=== PATIENT | female | born 1995 | race Caucasian/White ===

== ENCOUNTER 2018-04-27 20:53 | Emergency (ER) | payer MEDICAID ==
[2018-04-27 21:19] LABS: URINE SOURCE CLEAN C
[2018-04-27 21:30] LABS: URINE BILIRUBIN MODERATE (NEGATIVE); URINE BLOOD LARGE (NEGATIVE); URINE GLUCOSE (UA) NEGATIVE (NEGATIVE); URINE KETONE 40 mg/dL (NEGATIVE); URINE LEUKOCYTE ESTERASE NEGATIVE (NEGATIVE); URINE MICROSCOPIC INDICATED? YES; URINE NITRATE NEGATIVE (NEGATIVE); URINE PROTEIN 100 mg/dL (NEGATIVE); URINE UROBILINOGEN 0.2 E.U./dL (0.2 - 1.0)
[2018-04-27] MEDS ORDERED: Sodium Chloride 0.9% 1,000 ML IV ONE (21:34)
[2018-04-27 21:39] LABS: BASOPHILE ABSOLUTE 0.7 Th/cumm (0-0.2); EOSINOPHILE ABSOLUTE 0.1 Th/cmm (0.1-0.4); HEMATOCRIT 42.7 % (41.0-60); HEMOGLOBIN 14.2 gm/dL (12-16); LYMPHOCYTE ABSOLUTE 0.5 Th/cmm (1.5-3.0); MEAN CELL VOLUME 83.9 fl (81-100); MEAN CORPUSCULAR HEMOGLOBIN 27.9 pg (27.0-31.0); MEAN CORPUSCULAR HGB CONC 33.3 pg (28.0-36.0); MEAN PLATELET VOLUME 9.3 fl; MONOCYTE ABSOLUTE 0.3 Th/cmm (0.3-1.0); PLATELET COUNT 313 Th/cmm (150-400); RED BLOOD COUNT 5.09 Mil/cmm (3.80-5.10); RED CELL DISTRIBUTION WIDTH 12.8 % (11.5-20.0)
--- NOTE | 2018-04-27 21:42 | ED Physician Chart ---
ED Chief Complaint/HPI - Patient Information Date Seen:: 04/27/18 Time Seen:: 21:30 Chief Complaint:: fast ht rate History of Present Illness:: 22 yr old female who ate bad food at school and vomited 7 to 8 times today nauseous abd discomfort and sinus tachycardia 144 pt with no cardiac hx no cp no dizziness Allergies:: Allergies Allergy/AdvReac Type Severity Reaction Status Date / Time No Known Allergies Allergy Verified 04/27/18 21:03 Vitals:: Vital Signs - 8 hr 04/27/18 20:55 Temp 98.7 F HR 145 RR 18 BP 131/97 O2 Sat % 96 ED Review of Systems - Review of Systems General/Constitutional: No fever Skin: No skin lesions Head: No headache Eyes: No loss of vision ENT: No earache Neck: No neck pain Cardio Vascular: No chest pain Pulmonary: No SOB GI: No vomiting G/U: No dysuria Musculoskeletal: No bone or joint pain Endocrine: No polyuria Psychiatric: No depression, No anxiety Hematopoietic: No bruising Allergic/Immuno: No urticaria Neurological: No syncope ED Septic Shock - . Is Septic Shock (SBP<90, OR Lactate>4 mmol\L) present?: No - <6hrs of presentation: Vital Signs: Vital Signs - 8 hr 04/27/18 20:55 Temp 98.7 F HR 145 RR 18 BP 131/97 O2 Sat % 96 ED Reassessment (Disposition) - Reassessment Reassessment Condition:: Improved - Diagnosis Diagnosis:: vomiting gastroenteritis dehydration sinus tachycardia - Aftercare/Follow up Instructions Aftercare/Follow-Up Instructions:: Counseled pt regarding lab results/diagnosis & need follow up - Patient Disposition Discharge/Transfer:: Home Condition at Disposition:: Stable
[2018-04-27 21:54] LABS: ALB/GLOB RATIO 1.3 (1.0-1.8); ALBUMIN 4.5 gm/dL (3.7-5.3); ALKALINE PHOSPHATASE 76 U/L (34-104); AMYLASE SERUM 36 U/L (29-103); ANION GAP 16.4 (7.0-16.0); BILIRUBIN,TOTAL 0.6 mg/dL (0.3-1.0); BUN - UREA NITROGEN 10 mg/dL (7-25); CALCIUM SERUM 9.7 mg/dL (8.6-10.3); CARBON DIOXIDE 19.8 mEq/L (21.0-31.0); CHLORIDE 103 mEq/L (98-107); CREATININE - SERUM 0.5 mg/dL (0.6-1.2); GFR AFRICAN-AMERICAN > 60.0 ml/min (>90); GFR NON AFRICAN-AMERICAN > 60.0 ml/min; GLUCOSE 126 mg/dL (70-105); LIPASE 13 U/L (11-82); POTASSIUM SERUM 3.2 mEq/L (3.5-5.1); SGOT 13 U/L (13-39); SGPT/ALT 12 U/L (7-52); SODIUM SERUM 136 mEq/L (136-145); TOTAL PROTEIN,SERUM 7.9 gm/dL (6.0-8.3)
[2018-04-27 21:55] LABS: WHITE BLOOD COUNT 19.6 Th/cmm (4.8-10.8)
[2018-04-27 21:57] LABS: AMPHETAMINE URINE NEGATIVE (NEGATIVE); BARBITURATES URINE NEGATIVE (NEGATIVE); CANNABINOID THC POSITIVE (NEGATIVE); COCAINE METABOLITE QUAL URINE NEGATIVE (NEGATIVE); METHADONE URINE NEGATIVE (NEGATIVE); METHAMPHETAMINES QUAL URINE NEGATIVE (NEGATIVE); OPIATES (MORPHINE) QUAL. URINE NEGATIVE (NEGATIVE); PHENCYCLIDINE (PCP) URINE NEGATIVE (NEGATIVE); TRICYCLICS (TCA) QUAL. URINE NEGATIVE (NEGATIVE)
[2018-04-27 21:58] LABS: BENZODIAZEPINES QUAL URINE NEGATIVE (NEGATIVE)
[2018-04-27] MEDS ORDERED: Potassium Chloride 20 mEq ER Tab PO ONE ×3 (22:01→23:08)
[2018-04-27 22:07] LABS: URINE CLARITY CLEAR (CLEAR); URINE COLOR YELLOW
[2018-04-27 22:10] LABS: URINE BACTERIA 1+ /hpf (NONE SEEN); URINE EPITHELIAL CELLS MODERATE /lpf (FEW)
[2018-04-27] MEDS ORDERED: KCL 20mEq/100mL Premix 20 MEQ/100 ML PIGGYBACK IV SCH (22:15)
[2018-04-27] MEDS ORDERED: KCL 20mEq/100mL Premix 0 MEQ/0 ML PIGGYBACK IV ONE (22:18)
[2018-04-27 22:21] LABS: BAND NEUTROPHILE 14 % (0-10); LYMPHOCYTE 2 % (20-50); MONOCYTE 1 % (2-10); NEUTROPHILS 83 % (40-80)
[2018-04-27] MEDS ORDERED: Piperacillin Sodium/Tazobact 3.375 gm Vial IV ONE (22:30)
--- NOTE | 2018-04-28 08:30 | Diagnostic Imaging Report ---
Exam: CT examination abdomen pelvis. HISTORY: Dull pain Total DLP equals 579 CTDI equals 11.6 Findings: Multiple contiguous thin section of the abdomen pelvis obtained from lower thorax to pubic symphysis without the administration of intravenous or oral contrast material, no prior studies available comparison. The study demonstrates normal appearance of liver parenchyma and spleen. There is evidence for hepatosplenomegaly. The stomach distended with content and air. Small mesenteric lymph nodes are noted. Clinical correlation recommended. The gallbladder is intact. The pancreas is normal. Adrenal glands are normal. The kidneys demonstrate no evidence of obstructive uropathy or nephrolithiasis. No free fluid is noted. There is evidence of for mild ileus. The uterus is intact. There is evidence of diverticular disease without diverticulitis. The appendix is intact. Bony structures demonstrate no evidence for lytic or blastic lesions. IMPRESSION: Mild ileus. Mild diverticulosis no evidence of diverticulitis.
== END 2018-04-27 23:25 | disposition home or self-care (01) ==
LOC: ER 20:53
DX: E86.0 Dehydration (principal); K52.9 Noninfective gastroenteritis and colitis, unspecified; R00.0 Tachycardia, unspecified
CPT/HCPCS: 99285; 96365; 96375; 93005; 74176; 36415; 83605; 80307; 85007; 85025; 81001; 82150; 81025; 83690; 80053; 87040; J2405; J2543; J3480; J7030

== ENCOUNTER 2018-04-28 23:01 | Emergency (ER) | payer MEDICAID ==
[2018-04-28] MEDS ORDERED: Sodium Chloride 0.9% 1,000 ML IV ONE (23:32)
--- NOTE | 2018-04-28 23:45 | ED Physician Chart ---
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 Allergies:: Allergies Allergy/AdvReac Type Severity Reaction Status Date / Time No Known Allergies Allergy Verified 04/27/18 21:03 Vitals:: Vital Signs - 8 hr 04/28/18 23:10 Temp 98.6 F HR 93 RR 17 BP 108/62 O2 Sat % 100 Historian:: Patient Review:: Nurse's Note Reviewed ED Review of Systems - Review of Systems General/Constitutional: No fever, No chills, No weight loss, No weakness, No diaphoresis, No edema, No loss of appetite Skin: No skin lesions, No rash, No bruising Head: No headache, No light-headedness Eyes: No loss of vision, No pain, No diplopia ENT: No earache, No nasal drainage, No sore throat, No tinnitus Neck: No neck pain, No swelling, No thyromegaly, No stiffness, No mass noted Cardio Vascular: No chest pain, No palpitations, No PND, No orthopnea, No edema Pulmonary: No SOB, No cough, No sputum, No wheezing GI: Nausea, Vomiting, Diarrhea, Pain, No melena, No hematochezia, No constipation, No hematemesis G/U: No dysuria, No frequency, No hematuria, No nacturia 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 [employer]: No vaginal discharge, No abnormal vaginal bleed, No contraction Musculoskeletal: No bone or joint pain, No back pain, No muscle pain Endocrine: No polyuria, No polydipsia Psychiatric: No prior psych history, No depression, No anxiety, No suicidal ideation, No homicidal ideation, No auditory hallucination, No visual hallucination Hematopoietic: No bruising, No lymphadenopathy Allergic/Immuno: No urticaria, No angioedema Neurological: No syncope, No focal symptoms, No weakness, No paresthesia, No headache, No seizure, No dizziness, No confusion, No vertigo ED Past Medical History - Past Medical History Obtainable: Yes Past Medical History: No significant medical hx Family History: None Social History: Non Smoker, No Alcohol, No Drug Use, Single Surgical History: None Psychiatricy History: None Medication: Reviewed Family Medical History - Family Member Mother History Unknown: Yes ED Physical Exam - Physical Examination General/Constitutional: Awake, Well-developed, well-nourished, Alert, No distress, GCS 15, Non-toxic appearing, Ambulatory Head: Atraumatic Eyes: Lids, conjuctiva normal, PERRL, EOMI Skin: Nl inspection, No rash, No skin lesions, No ecchymosis, Well hydrated, No lymphadenopathy ENMT: External ears, nose nl, TM canals nl, Nasal exam nl, Lips, teeth, gums nl , Oropharynx nl, Tonsils nl Neck: Nontender, Full ROM w/o pain, No JVD, No nuchal rigidity, No bruit, No mass, No stridor Other Neck comments:: supple; no meningeal signs; no cervical tenderness; no bruits Respiratory: Nl effort/Exclusion, Clear to Auscultation, No Wheeze/Rhonchi/Rales Cardio Vascular: RRR, No murmur, gallop, rubs, NL S1 S2, Carotid/Femoral/Distal pulses equal bilaterally GI: No tenderness/rebounding/guarding, No organomegaly, No hernia, Normal BS's, Nondistended, No mass/bruits, No McBurney tenderness, Rectum exam nl Other GI comments:: no pulsatile masses : No CVA tenderness Extremities: No tenderness or effusion, Full ROM, normal strength in all extremities, No edema, Normal digits & nails Neuro/Psych: Alert/oriented, DTR's symmetric, Normal sensory exam, Normal motor strength, Judgement/insight normal, Mood normal, Normal gait, No focal deficits Other Neuro/Psych comments:: no focal signs Misc: Normal back, No paraspinal tenderness ED Labs/Radiology/EKG Results - Lab Results Comments:: Reviewed - Radiology Results Comments:: X-Rays: deferred by pt ED Septic Shock - . Is Septic Shock (SBP<90, OR Lactate>4 mmol\L) present?: No - <6hrs of presentation: Vital Signs: Vital Signs - 8 hr 04/28/18 23:10 Temp 98.6 F HR 93 RR 17 BP 108/62 O2 Sat % 100 ED Reassessment (Disposition) - Reassessment Reassessment:: pt tolerated po fluids well in ER; pt is asymptomatic upon discharge Reassessment Condition:: Improved - Diagnosis Diagnosis:: Dx: Gastroenteritis; N/V/D; Gastritis; AGE; Anemia; Hypokalemia; UTI; Nephrolithiasis; Hematuria - Aftercare/Follow up Instructions Aftercare/Follow-Up Instructions:: Counseled pt regarding lab results/diagnosis & need follow up, Refer to Discharge Instructions, Counseled pt & family regarding lab results/diagnosis & need follow up Medication Prescribed:: Rx: Macrobid 100mg po bid x 10 days; Strain all Urine with a Urine Strainer; Clear Liquid Diet; Encourage fluids especially citric acid juices - Patient Disposition Discharge/Transfer:: Home Condition at Disposition:: Stable, Improved (RTER prn if existing s/s reoccur and/or get worse and/or any other new s/s occur; ACIs given for all above Dx; Refer to GI/ Specialists/Printing Plate Clerk [facility]; F/U with PMD in one day or prn; RTER prn if concerned)
[2018-04-28 23:55] LABS: % BASOPHILS 0.1 % (0.0-2.0); % EOSINOPHILS 1.1 % (0.0-5.0); % LYMPHOCYTES 13.7 % (20.0-50.0); % MONOCYTES 8.5 % (2.0-10.0); % NEUTROPHILS 76.6 % (40.0-80.0); EOSINOPHILE ABSOLUTE 0.1 Th/cmm (0.1-0.4); HEMATOCRIT 35.2 % (41.0-60); HEMOGLOBIN 11.9 gm/dL (12-16); LYMPHOCYTE ABSOLUTE 1.2 Th/cmm (1.5-3.0); MEAN CELL VOLUME 83.5 fl (81-100); MEAN CORPUSCULAR HEMOGLOBIN 28.3 pg (27.0-31.0); MEAN CORPUSCULAR HGB CONC 33.8 pg (28.0-36.0); MEAN PLATELET VOLUME 8.9 fl; MONOCYTE ABSOLUTE 0.7 Th/cmm (0.3-1.0); NEUTROPHILE ABSOLUTE 6.5 Th/cmm (1.8-8.0); PLATELET COUNT 242 Th/cmm (150-400); RED BLOOD COUNT 4.22 Mil/cmm (3.80-5.10); RED CELL DISTRIBUTION WIDTH 12.8 % (11.5-20.0); WHITE BLOOD COUNT 8.5 Th/cmm (4.8-10.8)
[2018-04-29] LABS: URINE SOURCE CLEAN C
[2018-04-29 00:02] LABS: URINE BILIRUBIN SMALL (NEGATIVE); URINE BLOOD LARGE (NEGATIVE); URINE GLUCOSE (UA) NEGATIVE (NEGATIVE); URINE KETONE NEGATIVE (NEGATIVE); URINE LEUKOCYTE ESTERASE TRACE (NEGATIVE); URINE MICROSCOPIC INDICATED? YES; URINE NITRATE NEGATIVE (NEGATIVE); URINE PROTEIN TRACE mg/dL (NEGATIVE)
[2018-04-29 00:04] LABS: URINE COLOR YELLOW
[2018-04-29 00:09] LABS: ALB/GLOB RATIO 1.4 (1.0-1.8); ALKALINE PHOSPHATASE 57 U/L (34-104); AMYLASE SERUM 28 U/L (29-103); ANION GAP 14.5 (7.0-16.0); BILIRUBIN,TOTAL 0.4 mg/dL (0.3-1.0); BUN - UREA NITROGEN 5 mg/dL (7-25); CALCIUM SERUM 9.3 mg/dL (8.6-10.3); CARBON DIOXIDE 19.9 mEq/L (21.0-31.0); CHLORIDE 105 mEq/L (98-107); CREATININE - SERUM 0.5 mg/dL (0.6-1.2); GFR AFRICAN-AMERICAN > 60.0 ml/min (>90); GFR NON AFRICAN-AMERICAN > 60.0 ml/min; GLUCOSE 103 mg/dL (70-105); LIPASE 8 U/L (11-82); POTASSIUM SERUM 3.4 mEq/L (3.5-5.1); SGOT 17 U/L (13-39); SGPT/ALT 12 U/L (7-52); SODIUM SERUM 136 mEq/L (136-145); TOTAL PROTEIN,SERUM 6.9 gm/dL (6.0-8.3)
[2018-04-29 00:10] LABS: URINE CLARITY HAZY (CLEAR)
[2018-04-29 00:15] LABS: URINE BACTERIA FEW /hpf (NONE SEEN); URINE EPITHELIAL CELLS MODERATE /lpf (FEW); URINE WBC 0-2 /hpf (0-5)
[2018-04-29] MEDS ORDERED: Potassium Chloride 20 mEq ER Tab PO ONE ×2 (00:28→00:38)
[2018-04-29] MEDS ORDERED: cefTRIAXone 1 GM in Sodium Chloride 0.9% 50 ML IV ONE (00:28)
== END 2018-04-29 01:15 | disposition home or self-care (01) ==
LOC: ER 23:01
DX: K52.9 Noninfective gastroenteritis and colitis, unspecified (principal); K29.70 Gastritis, unspecified, without bleeding; E87.6 Hypokalemia; D64.9 Anemia, unspecified; N20.0 Calculus of kidney; N39.0 Urinary tract infection, site not specified
CPT/HCPCS: 99284; 96365; 96375; 36415; 85025; 81001; 82150; 84703; 81025; 83690; 80053; J2405; J0696; 81003-TC; J7030; Z7502

== ENCOUNTER 2018-12-14 04:41 | Emergency (ER) | payer BC, MEDICAID ==
--- NOTE | 2018-12-14 05:09 | ED Physician Chart ---
ED Chief Complaint/HPI - Patient Information Date Seen:: 12/14/18 Time Seen:: 05:00 Chief Complaint:: Abdominal pain. History of Present Illness:: Pt came in by private auto because of abdominal pain since about 0230 today. Pain is characterized as sharp, intermittent, and is localized at L flank. No fever. Pt had transient N/V with vomitus consists of gastric content. No hematemesis. Last BM yesterday at about 1030 that was normal in color/ consistency. No hematochezia or melena. Pt denies gross hematuria, dysuria, urinary frequency or urgency. No vaginal bleeding or discharge. No known aggravating or relieving factors. Pt denies use of any analgesic today. Allergies:: Allergies Allergy/AdvReac Type Severity Reaction Status Date / Time No Known Allergies Allergy Verified 04/27/18 21:03 Vitals:: Vital Signs - 8 hr 12/14/18 04:50 Temp 97.0 F HR 89 RR 17 BP 120/75 O2 Sat % 98 Historian:: Patient Family MD/PCP:: unknown LMP:: 11/29/2018 Review:: Nurse's Note Reviewed <Jer Fitzgerald - Last Filed: 12/14/18 07:11> - Patient Information Allergies:: Allergies Allergy/AdvReac Type Severity Reaction Status Date / Time No Known Allergies Allergy Verified 04/27/18 21:03 Vitals:: Vital Signs - 8 hr 12/14/18 12/14/18 04:50 08:33 Temp 97.0 F 97.5 F HR 89 71 RR 17 16 BP 120/75 117/50 O2 Sat % 98 97 <Sven Tariq - Last Filed: 12/14/18 10:55> ED Review of Systems - Review of Systems General/Constitutional: No fever, No weight loss, No weakness, No loss of appetite Skin: No skin lesions, No rash, No bruising Head: No headache, No light-headedness Eyes: No loss of vision, No pain, No diplopia ENT: No earache, No nasal drainage, No sore throat Neck: No neck pain, No swelling, No thyromegaly, No stiffness, No mass noted Cardio Vascular: No chest pain, No palpitations, No edema Pulmonary: No SOB, No cough, No wheezing GI: Nausea, Vomiting (transient), No diarrhea, Pain, No melena, No hematochezia , No constipation, No hematemesis G/U: No dysuria, No frequency, No hematuria 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 vaginal discharge, No abnormal vaginal bleed Musculoskeletal: No bone or joint pain Endocrine: No polyuria, No polydipsia Psychiatric: No prior psych history, No depression Hematopoietic: No bruising, No lymphadenopathy Allergic/Immuno: No urticaria, No angioedema Neurological: No syncope, No focal symptoms, No weakness, No paresthesia, No headache, No confusion <Jer - Last Filed: 12/14/18 07:11> ED Past Medical History - Past Medical History Past Medical History: No significant medical hx Family History: None Social History: Non Smoker, No Alcohol, No Drug Use, Single, Lives With Parents Employment:: unemployed. Surgical History: None Medication: None <Jer Fitzgerald - Last Filed: 12/14/18 07:11> Family Medical History - Family Member Mother History Unknown: Yes Living Status: Still Living <Jer [facility] Last Filed: 12/14/18 07:11> ED Physical Exam - Physical Examination General/Constitutional: Awake, Well-developed, well-nourished (female), Alert, Non-toxic appearing Other Gen/Cons comments:: Breathes comfortably, speaks clearly, and is in abdominal pain. Head: Atraumatic Eyes: Lids, conjuctiva normal, PERRL, EOMI Skin: Nl inspection, No rash, No ecchymosis, Well hydrated, No lymphadenopathy ENMT: External ears, nose nl, Nasal exam nl, Oropharynx nl Neck: Nontender, Full ROM w/o pain, No nuchal rigidity, No mass Respiratory: Nl effort/Exclusion, Clear to Auscultation, No Wheeze/Rhonchi/Rales Cardio Vascular: RRR, No murmur, gallop, rubs GI: No organomegaly, Normal BS's, Nondistended Other GI comments:: Obese but soft. Tenderness to palpation at L flank. No R/G. Negative Bashir's, Scott Gregorio's, and Barahona's signs. : No CVA tenderness Extremities: No tenderness or effusion, No edema Neuro/Psych: Alert/oriented (oriented x 3), No focal deficits <Jer [employer] Last Filed: 12/14/18 07:11> ED Labs/Radiology/EKG Results - Lab Results Results: Laboratory Tests 12/14/18 12/14/18 12/14/18 04:50 04:50 05:05 WBC RBC Hgb Hct MCV MCH MCHC Differential RDW Plt Count MPV Neutrophils % Lymphocytes % Monocytes % Eosinophils % Basophils % PT INR PTT (Actin FS) Sodium Potassium Chloride Carbon Dioxide Anion Gap BUN Creatinine Est GFR ( Amer) Est GFR (Non-Af Amer) BUN/Creatinine Ratio Glucose Calcium Total Bilirubin AST ALT Alkaline Phosphatase Total Protein Albumin Globulin Albumin/Globulin Ratio Amylase Lipase Urine Source RANDOM Urine Color YELLOW Urine Clarity CLEAR Urine pH 7.0 Ur Specific [place] <= 1.005 Urine Protein NEGATIVE Urine Glucose (UA) NEGATIVE Urine Ketones NEGATIVE Urine Blood MODERATE H Urine Nitrate NEGATIVE Urine Bilirubin NEGATIVE Urine Urobilinogen 0.2 Ur Leukocyte Esterase TRACE H Urine RBC 2-5 Urine WBC 0-2 Ur Epithelial Cells FEW Urine Bacteria FEW Urine Test NEGATIVE POC Ur Test Negative 12/14/18 12/14/18 12/14/18 05:35 05:35 05:35 WBC 11.8 H RBC 4.54 Hgb 12.9 Hct 38.4 L MCV 84.6 MCH 28.5 MCHC Differential 33.6 RDW 12.8 Plt Count 273 MPV 9.4 Neutrophils % 68.0 Lymphocytes % 23.4 Monocytes % 7.0 Eosinophils % 0.8 Basophils % 0.8 PT 9.7 INR 0.93 PTT (Actin FS) 26.5 Sodium 137 Potassium 3.2 L Chloride 102 Carbon Dioxide 25.8 Anion Gap 12.4 BUN 6 L Creatinine 0.5 L Est GFR ( Amer) > 60.0 Est GFR (Non-Af Amer) > 60.0 BUN/Creatinine Ratio 12.0 Glucose 104 Calcium 9.6 Total Bilirubin 0.4 AST 13 ALT 11 Alkaline Phosphatase 67 Total Protein 7.4 Albumin 4.3 Globulin 3.1 Albumin/Globulin Ratio 1.4 Amylase 44 Lipase 15 Urine Source Urine Color Urine Clarity Urine pH Ur Specific [place] Urine Protein Urine Glucose (UA) Urine Ketones Urine Blood Urine Nitrate Urine Bilirubin Urine Urobilinogen Ur Leukocyte Esterase Urine RBC Urine WBC Ur Epithelial Cells Urine Bacteria Urine Test POC Ur Test <Ng,Duval - Last Filed: 12/14/18 07:11> - Lab Results Results: Laboratory Tests 12/14/18 12/14/18 12/14/18 04:50 04:50 05:05 WBC RBC Hgb Hct MCV MCH MCHC Differential RDW Plt Count MPV Neutrophils % Lymphocytes % Monocytes % Eosinophils % Basophils % PT INR PTT (Actin FS) Sodium Potassium Chloride Carbon Dioxide Anion Gap BUN Creatinine Est GFR ( Amer) Est GFR (Non-Af Amer) BUN/Creatinine Ratio Glucose Calcium Total Bilirubin AST ALT Alkaline Phosphatase Total Protein Albumin Globulin Albumin/Globulin Ratio Amylase Lipase Urine Source RANDOM Urine Color YELLOW Urine Clarity CLEAR Urine pH 7.0 Ur Specific [place] <= 1.005 Urine Protein NEGATIVE Urine Glucose (UA) NEGATIVE Urine Ketones NEGATIVE Urine Blood MODERATE H Urine Nitrate NEGATIVE Urine Bilirubin NEGATIVE Urine Urobilinogen 0.2 Ur Leukocyte Esterase TRACE H Urine RBC 2-5 Urine WBC 0-2 Ur Epithelial Cells FEW Urine Bacteria FEW Urine Test NEGATIVE POC Ur Test Negative 12/14/18 12/14/18 12/14/18 05:35 05:35 05:35 WBC 11.8 H RBC 4.54 Hgb 12.9 Hct 38.4 L MCV 84.6 MCH 28.5 MCHC Differential 33.6 RDW 12.8 Plt Count 273 MPV 9.4 Neutrophils % 68.0 Lymphocytes % 23.4 Monocytes % 7.0 Eosinophils % 0.8 Basophils % 0.8 PT 9.7 INR 0.93 PTT (Actin FS) 26.5 Sodium 137 Potassium 3.2 L Chloride 102 Carbon Dioxide 25.8 Anion Gap 12.4 BUN 6 L Creatinine 0.5 L Est GFR ( Amer) > 60.0 Est GFR (Non-Af Amer) > 60.0 BUN/Creatinine Ratio 12.0 Glucose 104 Calcium 9.6 Total Bilirubin 0.4 AST 13 ALT 11 Alkaline Phosphatase 67 Total Protein 7.4 Albumin 4.3 Globulin 3.1 Albumin/Globulin Ratio 1.4 Amylase 44 Lipase 15 Urine Source Urine Color Urine Clarity Urine pH Ur Specific [place] Urine Protein Urine Glucose (UA) Urine Ketones Urine Blood Urine Nitrate Urine Bilirubin Urine Urobilinogen Ur Leukocyte Esterase Urine RBC Urine WBC Ur Epithelial Cells Urine Bacteria Urine Test POC Ur Test Comments:: Reviewed - Radiology Results Comments:: NAD <Sven Tariq - Last Filed: 12/14/18 10:55> ED Septic Shock - . Is Septic Shock (SBP<90, OR Lactate>4 mmol\L) present?: No - <6hrs of presentation: Vital Signs: Vital Signs - 8 hr 12/14/18 04:50 Temp 97.0 F HR 89 RR 17 BP 120/75 O2 Sat % 98 <AmilcarJer - Last Filed: 12/14/18 07:11> - <6hrs of presentation: Vital Signs: Vital Signs - 8 hr 12/14/18 12/14/18 04:50 08:33 Temp 97.0 F 97.5 F HR 89 71 RR 17 16 BP 120/75 117/50 O2 Sat % 98 97 <Sven Tariq - Last Filed: 12/14/18 10:55> ED Reassessment (Disposition) - Reassessment Reassessment:: 0645 Pt feels better and does not need more pain control. CT report is still pending. 0710 Pt remains stable and pain free. Case has been signed off to Dr. Tariq to follow on CT report and to continue care of pt. Reassessment Condition:: Improved - Diagnosis Diagnosis:: Abdominal pain. Mild hypokalemia. <Jer Fitzgerald - Last Filed: 12/14/18 07:11> - Diagnosis Diagnosis:: Abdominal Pain; Hypokalemia; N/V/D; AGE; Gastritis; Flank Pain; Hematuria; Nephrolithiasis; UTI; Cystitis - Aftercare/Follow up Instructions Aftercare/Follow-Up Instructions:: Counseled pt regarding lab results/diagnosis & need follow up, Refer to Discharge Instructions, Counseled pt & family regarding lab results/diagnosis & need follow up Notes:: pt tolerated po fluids well in ER; pt is asymptomatic upon discharge Medication Prescribed:: Rx: Macrobid 100mg po bid x 10 days; Mylanta/Tylenol/Urine Strainer: Strain all Urine; take all medications as prescribed; Clear Liquid Diet; Encourage Fluids especially citric acid juices; eat foods rich in potassium - Patient Disposition Discharge/Transfer:: Home Condition at Disposition:: Stable, Improved (RTER prn if existing s/s reoccur and/or get worse and/or any other new s/s occur; X-Rays Instructions; ACIs given for all above Dx; Refer to GI Specialist/ Specialist/Urologist/ Sheet Metal Shop Helper [facility]; F/U with PMD in one day or prn; RTER prn if concerned) <Sven Tariq - Last Filed: 12/14/18 10:55>
[2018-12-14 05:48] LABS: % BASOPHILS 0.8 % (0.0-2.0); % EOSINOPHILS 0.8 % (0.0-5.0); % LYMPHOCYTES 23.4 % (20.0-50.0); BASOPHILE ABSOLUTE 0.1 Th/cumm (0-0.2); EOSINOPHILE ABSOLUTE 0.1 Th/cmm (0.1-0.4); HEMATOCRIT 38.4 % (41.0-60); HEMOGLOBIN 12.9 gm/dL (12-16); LYMPHOCYTE ABSOLUTE 2.8 Th/cmm (1.5-3.0); MEAN CELL VOLUME 84.6 fl (81-100); MEAN CORPUSCULAR HEMOGLOBIN 28.5 pg (27.0-31.0); MEAN CORPUSCULAR HGB CONC 33.6 pg (28.0-36.0); MEAN PLATELET VOLUME 9.4 fl; MONOCYTE ABSOLUTE 0.8 Th/cmm (0.3-1.0); PLATELET COUNT 273 Th/cmm (150-400); RED BLOOD COUNT 4.54 Mil/cmm (3.80-5.10); RED CELL DISTRIBUTION WIDTH 12.8 % (11.5-20.0); WHITE BLOOD COUNT 11.8 Th/cmm (4.8-10.8)
[2018-12-14 06:04] LABS: INR 0.93 (0.5-1.4); PROTHROMBIN TIME (TEST) 9.7 SECONDS (9.5-11.5)
[2018-12-14 06:06] LABS: ALB/GLOB RATIO 1.4 (1.0-1.8); ALBUMIN 4.3 gm/dL (3.7-5.3); ALKALINE PHOSPHATASE 67 U/L (34-104); AMYLASE SERUM 44 U/L (29-103); ANION GAP 12.4 (7.0-16.0); BILIRUBIN,TOTAL 0.4 mg/dL (0.3-1.0); BUN - UREA NITROGEN 6 mg/dL (7-25); CALCIUM SERUM 9.6 mg/dL (8.6-10.3); CARBON DIOXIDE 25.8 mEq/L (21.0-31.0); CHLORIDE 102 mEq/L (98-107); CREATININE - SERUM 0.5 mg/dL (0.6-1.2); GFR AFRICAN-AMERICAN > 60.0 ml/min (>90); GFR NON AFRICAN-AMERICAN > 60.0 ml/min; GLUCOSE 104 mg/dL (70-105); LIPASE 15 U/L (11-82); POTASSIUM SERUM 3.2 mEq/L (3.5-5.1); SGOT 13 U/L (13-39); SGPT/ALT 11 U/L (7-52); SODIUM SERUM 137 mEq/L (136-145); TOTAL PROTEIN,SERUM 7.4 gm/dL (6.0-8.3)
[2018-12-14 06:16] LABS: URINE SOURCE RANDOM
[2018-12-14 06:21] LABS: URINE BILIRUBIN NEGATIVE (NEGATIVE); URINE BLOOD MODERATE (NEGATIVE); URINE GLUCOSE (UA) NEGATIVE (NEGATIVE); URINE KETONE NEGATIVE (NEGATIVE); URINE LEUKOCYTE ESTERASE TRACE (NEGATIVE); URINE MICROSCOPIC INDICATED? YES; URINE NITRATE NEGATIVE (NEGATIVE); URINE PROTEIN NEGATIVE (NEGATIVE); URINE UROBILINOGEN 0.2 E.U./dL (0.2 - 1.0)
[2018-12-14 06:24] LABS: URINE COLOR YELLOW
[2018-12-14 06:25] LABS: URINE CLARITY CLEAR (CLEAR)
[2018-12-14 06:28] LABS: URINE BACTERIA FEW /hpf (NONE SEEN); URINE EPITHELIAL CELLS FEW /lpf (FEW); URINE WBC 0-2 /hpf (0-5)
[2018-12-14] MEDS: Potassium Chloride 20 mEq ER Tab PO ONE (06:30)
[2018-12-14] MEDS ORDERED: Potassium Chloride 20 mEq ER Tab PO ONE (06:31)
--- NOTE | 2018-12-14 09:31 | Diagnostic Imaging Report ---
CT abdomen and pelvis without intravenous contrast Indication: Abdominal pain Comparison: CT abdomen and pelvis on 04/27/2018 Technique: Axial images were obtained from the lung bases to the bilateral proximal femurs without IV contrast. Coronal reconstructions were made. total DLP: 581, CTDI12.1 FINDINGS: Hypoventilatory and atelectatic changes of the lung bases are noted. Assessment of the solid organs is limited due to lack of IV contrast. No evidence of focal hepatic or splenic lesions. Borderline prominent liver is noted. No focal pancreatic or adrenal lesions. No evidence of hydronephrosis or nephrolithiasis. There is suggestion of mild urinary bladder wall prominence anteriorly. There is moderate amount stool throughout the colon nonspecific gas-filled loops of bowel. There is areas of mild small bowel stasis. No evidence of appendicitis. No free fluid or free air. The osseous structures demonstrate no acute abnormalities. IMPRESSION: Moderate stool throughout the colon and nonspecific gas filled loops of bowel. Scattered areas of small bowel stasis are noted without evidence of small bowel obstruction. Mild asymmetry wall thickening of the ventral urinary bladder wall bladder. Inflammatory or infiltrative process cannot be excluded. Correlate clinically. No appendicitis. Borderline prominent liver.
== END 2018-12-14 08:58 | disposition home or self-care (01) ==
LOC: ER 04:41
DX: E87.6 Hypokalemia (principal); R10.9 Unspecified abdominal pain; R11.2 Nausea with vomiting, unspecified
CPT/HCPCS: 99284; 96374; 74176; 36415; 85025; 85610; 87086; 81001; 82150; 81025 ×2; 83690; 80053; J1885